=== PATIENT | female | born 1980 | race Two or more races ===

== ENCOUNTER 2025-06-09 14:50 | Emergency (ER) | payer MEDICAID, SELFPAY ==
[2025-06-09 15:34] VITALS: BP 154/99; PULSE 86; RESP 20; TEMP 37; O2SAT 99
--- NOTE | 2025-06-09 17:54 | PD.EDRME ---
Rapid Medical Screening Exam RME Arrival date/time: 06/09/25 14:50 Chief Complaint: General Adult/Misc Complain Vital signs: Vital Signs Temperature 98.6 F 06/09/25 15:34 Pulse Rate 86 06/09/25 15:34 Respiratory Rate 20 06/09/25 15:34 Blood Pressure 154/99 H 06/09/25 15:34 Pulse Oximetry (%) 99 06/09/25 15:34 Oxygen Delivery Method Room Air 06/09/25 15:34 Pulse ox 99% room air Vital signs reviewed by provider: Yes RME Narrative: Patient was sent by primary care physician as she had had high blood pressure at the physician's office. Patient's tells me that for the last couple of days she has been feeling dizzy and has a headache that goes from the front to the rear. Also complains of blurred vision.
[2025-06-09 18:41] VITALS: BP 152/99; PULSE 80; RESP 18; TEMP 36.7; O2SAT 99
[2025-06-09 18:49] LABS: Basophils # (Auto) 0.1 Thou/mm3 (0.0-0.2); Basophils % (Auto) 1 % (0-2.5); Eosinophils # (Auto) 0.5 Thou/mm3 (0.0-0.5); Eosinophils % (Auto) 5 % (0-10); Hematocrit 36.7 % (36.0-46.0); Hemoglobin 12.1 g/dL (12.0-16.0); Immature Granulocytes Auto 0.04 Thou/mm3 (0.00-0.00); Lymphocytes # (Auto) 3.0 Thou/mm3 (1.0-4.8); Lymphocytes % (Auto) 29 % (10-50); Mean Corpuscular HGB Conc 33.0 g/dl (31.0-37.0); Mean Corpuscular Hemoglobin 26.7 pg (25.0-35.0); Mean Corpuscular Volume 81 fL (80-100); Monocytes # (Auto) 0.5 Thou/mm3 (0.0-0.8); Monocytes % (Auto) 5 % (0-12); Neutrophils # (Auto) 6.1 Thou/mm3 (1.8-7.7); Neutrophils % (Auto) 60 % (37-80); Nucleated Red Blood Cell # 0.00 Thou/mm3 (0.00-0.00); Nucleated Red Blood Cell % 0 /100 WBC (0); Platelet Count 344 Thou/mm3 (140-440); RDW Standard Deviation 42.3 fL (36.4-46.3); Red Blood Count 4.53 Miln/mm3 (4.00-5.20); White Blood Count 10.3 Thou/mm3 (3.6-11.0)
[2025-06-09 19:06] LABS: Collection Type, Urine Clean Catch
[2025-06-09 19:09] LABS: Bilirubin,Urine Negative (Negative); Blood,Urine Negative (Negative); Clarity,Urine Clear (Clear/Hazy); Color,Urine Yellow (Lt Yel-Yel); Culture Indicated,Urine Not Indicated; Glucose, Urine Negative (Negative); Ketones,Urine Negative (Negative); Leukocyte Esterase,Urine Negative (Negative); Nitrite,Urine Negative (Negative); PH,Urine 6.0 (5.0-7.0); Protein,Urine Trace (Neg - Trace); RBC,Urine 2 /hpf (0-3); Specific Gravity,Urine 1.031 (1.001-1.035); Squamous Epithelial Cell,Urine < 1 /hpf (0-5); Urobilinogen,Urine Negative mg/dL (0.0-1.0); WBC,Urine 2 /hpf (0-5)
[2025-06-09 19:14] LABS: Alanine Aminotransferase 19 U/L (10-49); Albumin, Serum 4.8 gm/dL (3.5-5.0); Albumin/Globulin Ratio 1.8 (1.2-2.2); Alkaline Phosphatase 143 U/L (46-116); Anion Gap 10 (7-16); Aspartate Amino Transferase 21 U/L (0-34); BUN/Creatinine Ratio 11 Ratio (12-20); Bilirubin,Total 0.4 mg/dL (0.3-1.2); Blood Urea Nitrogen 9 mg/dL (9-23); Calcium 9.9 mg/dL (8.3-10.6); Calcium (Corrected) 9.9 mg/dL (8.5-10.1); Carbon Dioxide 27.1 mMol/L (20.0-31.0); Chloride 102 mMol/L (98-107); Creatinine (Component) 0.8 mg/dL (0.6-1.3); Estimated Creatinine Clearance 94.7 mL/min (>60); Globulin 2.7 gm/dL (2.3-3.5); Glucose 106 mg/dL (74-106); Osmolality,Calculated 276 (275-295); Potassium 3.4 mMol/L (3.4-5.1); Sodium 139 mMol/L (136-145); Total Protein 7.5 gm/dL (5.7-8.2); eGFR > 60 See Note
[2025-06-09 21:12] VITALS: BP 163/83; PULSE 82; RESP 18; TEMP 36.6; O2SAT 98
--- NOTE | 2025-06-09 21:47 | PD.EDADULT ---
ED General RME/HPI General Chief complaint: General Adult/Misc Complain Stated complaint: HIGH BP, SENT BY PCP. BLURRY VISION, SPRINGER Time Seen by Provider: 06/09/25 21:36 Arrival date/time: 06/09/25 14:50 Limitations: no limitations RME / HPI RME / HPI narrative: 44-year-old female who states she went to her primary care provider's office today for refills of her hypertensive medications. She states she was found to be hypertensive and was routed here for further workup. She states her systolic pressure was in 190s. Patient states she received refills of her medications and was also given an antihypertensive. She does not recall what she was given or what she takes. She states that a prescription was sent to her pharmacy and her did pick it up. Related Data Home Medications ?Medication ?Instructions ?Recorded ?Confirmed ibuprofen 800 mg tablet 800 mg PO TID PRN Pain 12/05/18 12/05/18 omeprazole 20 mg capsule,delayed 20 mg PO QDAY PRN Acid Reflux 12/05/18 12/05/18 release Allergies Allergy/AdvReac Type Severity Reaction Status Date / Time No Known Allergies Allergy Verified 06/09/25 14:54 Review of Systems Review of Systems Systems Reviewed: All systems reviewed, normal except as documented ED Exam General Limitations: Present no limitations General appearance: Present alert and in no apparent distress Head Head exam: Present atraumatic Eye Eye exam: Present normal appearance and PERRL ENT ENT exam: Present normal exam and normal oropharynx Neck Neck exam: Present normal inspection and full ROM Chest Chest inspection: Present normal inspection Respiratory Respiratory exam: Absent respiratory distress Cardiovascular Cardiovascular exam: Present regular rate and normal rhythm Abdominal Exam Abdominal exam: Absent distention Extremities Exam Extremities exam: Present normal inspection and full ROM Back Exam Back exam: Present normal inspection and full ROM Neurological Exam Neurological exam: Present alert and oriented X3 Psychiatric Psychiatric exam: Present normal affect and normal mood Skin Skin exam: Present warm, dry, intact and normal color Course Quality Measures none Orders Category Date Time Status CBC Stat Lab 06/09/25 18:21 Completed CMP [Comprehensive Metabolic Panel] Stat Lab 06/09/25 18:21 Completed UA, C/S IF [Urinalysis, C/S if Indicated] Stat Lab 06/09/25 18:45 Completed Vital Signs Vital signs: Vital Signs Temperature 98.6 F 06/09/25 15:34 Pulse Rate 86 06/09/25 15:34 Respiratory Rate 20 06/09/25 15:34 Blood Pressure 154/99 H 06/09/25 15:34 Pulse Oximetry (%) 99 06/09/25 15:34 Oxygen Delivery Method Room Air 06/09/25 15:34 Discharge Plan Plan Patient Disposition: HOME (Self Care) Patient condition on transfer: Stable Prescriptions/Referrals Prescriptions/Med Rec: No Action ibuprofen 800 mg Tablet 800 mg PO TID PRN (Reason: Pain) omeprazole 20 mg Capsule,Delayed Release(Dr/Ec) 20 mg PO QDAY PRN (Reason: Acid Reflux) Referrals: No Primary/Family,Physician [Primary Care Provider] - In 1 week Problem List Clinical Impression: Hypertension Patient/Caregiver Discharge Instructions Education Materials: ED High Blood Pressure ... Additional Instructions: -Use your current blood pressure medications. -Follow up with primary doctor within 1-2 weeks for a recheck. -Return here as needed for any worsening changes. Print Language: Slovak Stand Alone Forms: Maty Award Info., Patient Portal Info Letter MDM Narrative [facility] hospital course: 44-year-old female who states she went to her primary care provider's office today for refills of her hypertensive medications. She states she was found to be hypertensive and was routed here for further workup. She states her systolic pressure was in 190s. Patient states she received refills of her medications and was also given an antihypertensive. She does not recall what she was given or what she takes. She states that a prescription was sent to her pharmacy and her did pick it up. On exam, patient is nontoxic-appearing and in no visible signs distress. When she initially arrived her blood pressure was 154/99, heart rate was 86, O2 99% on room air. She was in no distress. She states over the past week she has had some intermittent headaches. She has had no unilateral weakness, no paresthesias, no dysarthria, no concerns for CVA. Workup here reveals no endorgan dysfunction. We reviewed her labs in detail and she was given a copy of her labs today. She will be discharged from the emergency room. She states she has her medications at home that she can now take for her blood pressure. She agrees to follow-up with her primary clinic. Return as needed for any worsening or emergent changes Clinical Information Provided by patient Medical Records Reviewed None Meds/Rx Considered, not Ordered None Labs/Rad/Tests considered, not Ordered None Lab Interpretation Lab(s) interpretation(s): CBC and metabolic panel are unremarkable. Urinalysis unremarkable, there is no proteinuria. Imaging Imaging interpretation: none Medication Administration(s) none Diagnosis Differential diagnosis: Hypertension, SABRINA, hypertensive urgency Dispositon Disposition: Discharge Home
[2025-06-09 21:54] VITALS: BP 163/83; PULSE 76; RESP 16; TEMP 36.8; O2SAT 98
== END 2025-06-09 21:55 | disposition home or self-care (01) ==
PROVIDERS: Physician Assistant; Emergency Provider Emergency Medicine
DX: I10 Essential (primary) hypertension (principal)
CPT/HCPCS: 36415; 80053; 81001; 85025; 99282

== ENCOUNTER → 2025-06-16 | Outpatient (CLI) | payer BC, MEDICAID, SELFPAY ==
[2025-06-16 08:22] LABS: Basophils # (Auto) 0.1 Thou/mm3 (0.0-0.2); Basophils % (Auto) 1 % (0-2.5); Eosinophils # (Auto) 0.5 Thou/mm3 (0.0-0.5); Eosinophils % (Auto) 6 % (0-10); Hematocrit 37.9 % (36.0-46.0); Hemoglobin 12.1 g/dL (12.0-16.0); Immature Granulocytes Auto 0.03 Thou/mm3 (0.00-0.00); Lymphocytes # (Auto) 2.4 Thou/mm3 (1.0-4.8); Lymphocytes % (Auto) 28 % (10-50); Mean Corpuscular HGB Conc 31.9 g/dl (31.0-37.0); Mean Corpuscular Hemoglobin 26.4 pg (25.0-35.0); Mean Corpuscular Volume 83 fL (80-100); Monocytes # (Auto) 0.5 Thou/mm3 (0.0-0.8); Monocytes % (Auto) 6 % (0-12); Neutrophils # (Auto) 5.0 Thou/mm3 (1.8-7.7); Neutrophils % (Auto) 59 % (37-80); Nucleated Red Blood Cell # 0.00 Thou/mm3 (0.00-0.00); Nucleated Red Blood Cell % 0 /100 WBC (0); Platelet Count 342 Thou/mm3 (140-440); RDW Standard Deviation 44.9 fL (36.4-46.3); Red Blood Count 4.58 Miln/mm3 (4.00-5.20); White Blood Count 8.4 Thou/mm3 (3.6-11.0)
[2025-06-16 08:32] LABS: Glucose Estimated Average 151 mg/dL (80-131); Hemoglobin A1C 6.9 % Hgb (4.8-6.0)
[2025-06-16 08:34] LABS: T4 (Thyroxine) 9.3 mcg/dL (4.5-10.9)
[2025-06-16 08:40] LABS: Alanine Aminotransferase 26 U/L (10-49); Albumin, Serum 4.6 gm/dL (3.5-5.0); Albumin/Globulin Ratio 1.5 (1.2-2.2); Alkaline Phosphatase 138 U/L (46-116); Anion Gap 9 (7-16); Aspartate Amino Transferase 26 U/L (0-34); BUN/Creatinine Ratio 11 Ratio (12-20); Bilirubin,Total 0.3 mg/dL (0.3-1.2); Blood Urea Nitrogen 11 mg/dL (9-23); Calcium 9.4 mg/dL (8.3-10.6); Calcium (Corrected) 9.4 mg/dL (8.5-10.1); Carbon Dioxide 26.8 mMol/L (20.0-31.0); Cardiac Risk Estimate 4.5 RATIO (3.7-5.6); Chloride 102 mMol/L (98-107); Cholesterol 171 mg/dL (132-200); Creatinine (Component) 1.0 mg/dL (0.6-1.3); Free T4 (Free Thyroxine) 1.12 ng/dL (0.89-1.76); Globulin 3.1 gm/dL (2.3-3.5); Glucose 124 mg/dL (74-106); HDL Cholesterol 38 mg/dL (40-60); LDL Cholesterol,Calculated 107 mg/dL (0-130); Osmolality,Calculated 276 (275-295); Potassium 4.1 mMol/L (3.4-5.1); Sodium 138 mMol/L (136-145); Thyroid Stimulating Hormone 1.01 uIU/mL (0.55-4.78); Total Protein 7.7 gm/dL (5.7-8.2); Triglycerides 129 mg/dL (30-150); eGFR > 60 See Note
[2025-06-16 08:48] LABS: Creatinine MALB Rnd Ur 187 mg/dL (30-125); Microalbumin Creat Ratio 3 mg/gCrea (<30); Microalbumin, Random Urine 5 mg/L (0-300)
== END | disposition home or self-care (01) ==
LOC: COPL 06:47
PROVIDERS: PCP Registered Nurse Community Health; Referring Provider Registered Nurse Community Health; Visit Provider Registered Nurse Community Health
DX: I10 Essential (primary) hypertension (principal); E11.65 Type 2 diabetes mellitus with hyperglycemia; E66.01 Morbid (severe) obesity due to excess calories
CPT/HCPCS: 36415; 80053; 80061; 82043; 82570; 83036; 84436; 84439; 84443; 85025